=== PATIENT | male | born 1955 | race Caucasian/White ===

== ENCOUNTER 2020-09-27 06:29 | Day surgery (SDC) | payer BC, MEDICARE ==
[2020-09-27] MEDS ORDERED: Propofol 200 MG/20 ML SDV ONE (06:59)
[2020-09-27] MEDS ORDERED: Midazolam 1 MG/ML 2 ML SDV ONE (06:59)
[2020-09-27] MEDS ORDERED: fentaNYL 100 MCG/2 ML SDV ONE (06:59)
[2020-09-27] MEDS ORDERED: Albuterol 0.083% 2.5 MG/3 ML Neb Soln NEB PRN (07:01)
[2020-09-27] MEDS ORDERED: Ondansetron 4 MG/2 ML SDV ONE (07:01)
[2020-09-27] MEDS ORDERED: fentaNYL 100 MCG/2 ML SDV IVPUSH PRN (07:01)
[2020-09-27] MEDS ORDERED: Metoclopramide 10 MG/2 ML SDV IVPUSH PRN (07:01)
[2020-09-27] MEDS ORDERED: Dexamethasone 4 MG/ML 5 ML MDV ONE (07:01)
[2020-09-27] MEDS ORDERED: Naloxone 0.4 MG/ML Syringe IVPUSH PRN (07:01)
[2020-09-27] MEDS ORDERED: Ondansetron 4 MG/2 ML SDV IVPUSH PRN (07:01)
[2020-09-27] MEDS ORDERED: Heparin Sodium 100 Units/ML 3 ML Syringe ONE (07:25)
[2020-09-27] MEDS ORDERED: Bupivacaine 0.5% 10 ML SDV ONE (07:25)
[2020-09-27] MEDS ORDERED: Iopamidol 408 MG/ML 20 ML SDV ONE (07:26)
[2020-09-27] MEDS ORDERED: Lidocaine 1% 20 ML MDV ONE (07:26)
[2020-09-27] MEDS ORDERED: Octyl 2-Cyanoacrylate 1 Tube ONE (07:35)
--- NOTE | 2020-09-27 07:40 | PCM.PREANE ---
Preanesthetic Assessment - Anesthesia/Transfusion/Family Hx Anesthesia History: Prior Anesthesia Without Reaction Family History of Anesthesia Reaction: No Transfusion History: No Prior Transfusion(s) - Review of Systems General: No Symptoms Pulmonary: No Symptoms Cardiovascular: No Symptoms Gastrointestinal: No Symptoms Neurological: No Symptoms Other: Reports: None - Physical Assessment NPO Status Date: 09/27/20 NPO Status Time: 00:00 Vital Signs: Last Vital Signs Temp 96.8 F L 09/27/20 07:07 Pulse 57 L 09/27/20 07:07 Resp 16 09/27/20 07:07 BP 158/88 H 09/27/20 07:07 Pulse Ox 97 09/27/20 07:07 Height: 5 ft 8 in Weight: 217 lb ASA Class: 2 Mental Status: Alert & Oriented x3 Airway Class: Mallampati = 2 Dentition: Reports: Edentulous Thyro-Mental Finger Breadths: 3 Mouth Opening Finger Breadths: 4 ROM/Head Extension: Full Lungs: Clear to Auscultation, Normal Respiratory Effort Cardiovascular: Regular Rate, Regular Rhythm - Lab Values: Laboratory Last Values SARS-CoV-2 RNA (DAISY) NEGATIVE (NEGATIVE) 09/27/20 06:00 - Allergies Allergies/Adverse Reactions: Allergies Allergy/AdvReac Type Severity Reaction Status Date / Time No Known Allergies Allergy Verified 09/25/20 10:46 - Blood Blood Available: No - Acknowledgements Anesthesia Type Planned: General Anesthesia Pt an Appropriate Candidate for the Planned Anesthesia: Yes Alternatives and Risks of Anesthesia Discussed w Pt/Guardian: Yes Pt/Guardian Understands and Agrees with Anesthesia Plan: Yes PreAnesthesia Questionnaire HEENT History: Reports: Other (See Below) Other HEENT History: wears glasses, dental implants, lower dental plate Cardiovascular History: Reports: None Respiratory History: Reports: None Gastrointestinal History: Reports: Other (See Below) Other Gastrointestinal History: colon cancer Genitourinary History: Reports: Renal Calculus Musculoskeletal History: Reports: Fracture Neurological History: Reports: None Psychiatric History: Reports: None Endocrine/Metabolic History: Reports: Obesity/BMI 30+ Hematologic History: Reports: Blood Transfusion(s) Immunologic History: Reports: None Oncologic (Cancer) History: Reports: Colon Dermatologic History: Reports: None - Past Surgical History Head Surgeries/Procedures: Reports: None HEENT Surgical History: Reports: Oral Surgery Cardiovascular Surgical History: Reports: None Respiratory Surgical History: Reports: None GI Surgical History: Reports: Colon, Colonoscopy Other GI Surgeries/Procedures: right hemicolectomy Male Surgical History: Reports: Lithotripsy (ES[facility]) Endocrine Surgical History: Reports: None Neurological Surgical History: Reports: Laminectomy Other Neurological Surgeries/Procedures: hx back surgery Musculoskeletal Surgical History: Reports: Other (See Below) Other Musculoskeletal Surgeries/Procedures:: sx for fx femur Oncologic Surgical History: Reports: None Dermatological Surgical History: Reports: None - SUBSTANCE USE Tobacco Use Status *Q: Never Tobacco User - HOME MEDS Home Medications: Home Meds Prochlorperazine [Compazine] 10 mg PO Q6H PRN 09/25/20 [History] - CURRENT (IN HOUSE) MEDS Current Meds: Current Medications Albuterol (Albuterol 0.083% 2.5 Mg/3 Ml Neb Soln) 2.5 mg NEB ONETIME PRN PRN Reason: Wheezing Fentanyl (Fentanyl 100 Mcg/2 Ml Sdv) 50 mcg IVPUSH Q5M PRN PRN Reason: Pain (mild 1-3) Metoclopramide HCl (Metoclopramide 10 Mg/2 Ml Sdv) 10 mg IVPUSH ONETIME PRN PRN Reason: Nausea/Vomiting Naloxone HCl (Naloxone 0.4 Mg/Ml Syringe) 0.1 mg IVPUSH ASDIRECTED PRN PRN Reason: Respiratory Depression Ondansetron HCl (Ondansetron 4 Mg/2 Ml Sdv) 4 mg IVPUSH ONETIME PRN PRN Reason: Nausea/Vomiting Discontinued Medications Bupivacaine HCl (Bupivacaine 0.5% 10 Ml Sdv) Confirm Administered Dose 10 ml .ROUTE .STK-MED ONE Stop: 09/27/20 07:26 Dexamethasone (Dexamethasone 4 Mg/Ml 5 Ml Mdv) Confirm Administered Dose 20 mg .ROUTE .STK-MED ONE Stop: 09/27/20 07:02 Fentanyl (Fentanyl 100 Mcg/2 Ml Sdv) Confirm Administered Dose 100 mcg .ROUTE .STK-MED ONE Stop: 09/27/20 07:00 Heparin Sodium (Porcine) (Heparin Sodium 100 Units/Ml 3 Ml Syringe) Confirm Administered Dose 600 unit .ROUTE .STK-MED ONE Stop: 09/27/20 07:26 Iopamidol (Iopamidol 408 Mg/Ml 20 Ml Sdv) Confirm Administered Dose 20 ml .ROUTE .STK-MED ONE Stop: 09/27/20 07:27 Lidocaine HCl (Lidocaine 1% 5 Ml Sdv) Confirm Administered Dose 5 ml .ROUTE .[email or web address] ONE Stop: 09/27/20 07:04 Lidocaine HCl (Lidocaine 1% 20 Ml Mdv) Confirm Administered Dose 20 ml .ROUTE .[email or web address] ONE Stop: 09/27/20 07:27 Midazolam HCl (Midazolam 1 Mg/Ml 2 Ml Sdv) Confirm Administered Dose 2 mg .ROUTE .[email or web address] ONE Stop: 09/27/20 07:00 Octyl Cyanoacrylate (Octyl 2-Cyanoacrylate 1 Tube) Confirm Administered Dose 1 applic .ROUTE .[email or web address] ONE Stop: 09/27/20 07:36 Ondansetron HCl (Ondansetron 4 Mg/2 Ml Sdv) Confirm Administered Dose 4 mg .ROUTE .[employer] ONE Stop: 09/27/20 07:02 Propofol (Propofol 200 Mg/20 Ml Sdv) Confirm Administered Dose 200 mg .ROUTE .[email or web address] ONE Stop: 09/27/20 07:00
--- NOTE | 2020-09-27 09:00 | PCM.POSTAN ---
POST ANESTHESIA ASSESSMENT - MENTAL STATUS Mental Status: Alert, Oriented - VITAL SIGNS Vital Signs: Last Vital Signs Temp 96.8 F L 09/27/20 07:07 Pulse 57 L 09/27/20 07:07 Resp 16 09/27/20 07:07 BP 158/88 H 09/27/20 07:07 Pulse Ox 97 09/27/20 07:07 - RESPIRATORY Respiratory Status: Respiratory Rate WNL, Airway Patent, O2 Saturation Stable - CARDIOVASCULAR CV Status: Pulse Rate WNL, Blood Pressure Stable - GASTROINTESTINAL GI Status: No Symptoms - POST OP HYDRATION Hydration Status: Adequate & Stable
--- NOTE | 2020-09-27 09:04 | PCM.OPNOTE ---
- General Post-Op/Procedure Note Date of Surgery/Procedure: 09/27/20 Operative Procedure(s): Right internal jugular port a cath placement Findings: RIJ port Pre Op Diagnosis: Colon cancer Post-Op Diagnosis: same Anesthesia Technique: General LMA Primary Surgeon: Criss Stoll Fluid Replacement, Intraop: 600 EBL in mLs: 5 Condition: Good
--- NOTE | 2020-09-27 10:06 | CR ---
For Patients: As a result of the Century Cures Act, medical imaging exams and procedure reports are released immediately into your electronic medical record. You may view this report before your referring provider. If you have questions, please contact your health care provider. INDICATION: Post Port-A-Cath placement. TECHNIQUE: Upright portable AP image of the chest. COMPARISON: None. FINDINGS: Lungs low in volume, clear. Port-A-Cath in place with tip in the superior vena cava. No pleural effusion. Heart size at the upper limit of normal. Pulmonary veins normal in caliber. No significant bony abnormality. IMPRESSION: Port-A-Cath in the SVC. Dictated by Gagan Canela MD @ 09/27/2020 10:05:[address] Gagan Canela @ Sep 27 2020 10:05AM
--- NOTE | 2020-09-27 15:35 | OR ---
SURGEON: CRISS STOLL MD DATE OF PROCEDURE: 09/27/2020 PREOPERATIVE DIAGNOSIS: Colon cancer. POSTOPERATIVE DIAGNOSIS: Colon cancer. PROCEDURE PERFORMED: Right internal jugular Port-A-Cath placement. PRIMARY SURGEON: Criss Stoll MD ANESTHESIA: General LMA, local. FLUIDS: 600 mL of crystalloid. ESTIMATED BLOOD LOSS: 5 mL. FINDINGS: Placement of right internal jugular Port-A-Cath. COMPLICATIONS: None. INDICATIONS: The patient is a 65-year-old male who was recently diagnosed with colon cancer and is in need of a port for chemotherapy treatment. I explained the procedure, expected perioperative course, and the risks. The patient verbalized understanding and wishes to proceed. PROCEDURE IN DETAIL: The patient was brought to the OR and placed on the OR table in supine position. A time-out was completed verifying the patient's name, age, date of , allergies, and procedure to be performed. General LMA anesthesia was induced. A shoulder roll was placed under the patient's shoulders and the arms were tucked on both sides. An ultrasound was used to verify the vascular anatomy of the right side of the neck. I clearly visualized the right internal jugular vein and carotid artery. The neck and chest were then prepped and draped in usual standard fashion. I anesthetized the skin overlying the right internal jugular vein with a combination of 0.5% Marcaine plain and 1% lidocaine plain. I anesthetized the anterior chest wall where the Port-A-Cath and tubing would be placed as well. Using a sterile ultrasound probe, I reidentified the vascular anatomy of the right side of the neck. Using ultrasound guidance, I placed a guide needle into the right internal jugular vein. Prior to this, the patient was placed into Trendelenburg position. Once the needle was in the vein, a good return of venous blood was noted. A guidewire was placed down the needle into the chest. The C-arm was brought in to verify correct placement of the guidewire into the vena cava. I secured the guidewire to the sheets and turned my attention to the right anterior chest wall. A 15-blade was used to make an incision three fingerbreadths below the mid aspect of the clavicle. I then used cautery to create a subcutaneous chest wall pocket. A tunneling device was used to tunnel the catheter tubing from the anterior chest wall site up to the insertion site on the neck. Using fluoroscopic guidance, I then used a vascular sheath and dilator to dilate up my vascular tract. The guidewire and dilator were removed leaving the vascular sheath in place. The catheter tubing was placed down the vascular sheath into the vena cava. This was then peeled away. Using fluoroscopic guidance, I guided the catheter tubing into the superior vena cava. An x-ray of this was then taken and saved. I accessed the catheter tubing and had a good return of venous blood. It was trimmed and placed onto the Port-A-Cath device. The port was then placed into the chest wall pocket and secured on either side with interrupted 2-0 Prolene sutures. I accessed the Port-A-Cath device and had a good return of venous blood flow. It was then locked with 4 mL of heparinized saline. The subcutaneous fat overlying the Port- A-Cath device was closed with a running 3-0 Vicryl suture. The skin was closed with a running 4-0 Monocryl stitch. The insertion site on the neck was closed with an interrupted 4-0 Monocryl suture. Dermabond and sterile dressings were applied. The patient tolerated the procedure well and was taken to PACU in stable condition. All counts were complete and correct at the end of the case. A postoperative chest x-ray showed good placement of the Port-A-Cath device with no evidence of pneumothorax or hemothorax. MICKEY WALSH /[id number]
--- NOTE | 2020-09-28 13:41 | CR ---
INDICATION: Port-A-Cath placement. COMPARISON: none TECHNIQUE: Portable AP erect chest performed at 9:10 a.m. FINDINGS: The right internal jugular Port-A-Cath lies within the SVC. There is no evidence of pneumothorax or mediastinal hematoma. The lungs are clear. The heart, mediastinum and pulmonary vessels are of normal size. There is no evidence of pleural fluid. IMPRESSION: Stable appearance of the thorax following right-sided Port-A-Cath placement. Dictated by Hero Gallardo MD @ 09/28/2020 1:41:[address] Hero Gallardo @ Sep 28 2020 1:41PM
== END 2020-09-27 10:14 | disposition home or self-care (01) ==
LOC: MW.SDS 06:29
PROVIDERS: ATTEND Surgery
DX: C18.9 Malignant neoplasm of colon, unspecified (principal); E66.9 Obesity, unspecified; Z68.33 Body mass index [BMI] 33.0-33.9, adult; Z01.812 Encounter for preprocedural laboratory examination; Z20.822 Contact with and (suspected) exposure to COVID-19; Z98.890 Other specified postprocedural states
CPT/HCPCS: 36561; 71045; 76000; 87635; A9270; J0690; J1100; J1642; J2250; J2704; J3490; J2405; J3010; Q9966; U0002